=== PATIENT | female | born 1975 | race Caucasian/White ===

== ENCOUNTER → 2020-08-19 | Outpatient (CLI) | payer BC, OTHER ==
[~2020-08-19] MED LIST: ASPIRIN EC81 MG PO; FEOSOL325 MG PO; GLUCOPHAGE 500500 MG PO; LIPITOR TAB 2020 MG PO; LISINOPRIL-HCT1 EAC1 PO; MOBIC7.5 MG PO; PRILOSEC OTC20 MG PO; SYNTHROID150 MCG PO; TENORMIN 25 MG25 MG PO; VITAMIN D250 MCG PO; XYZAL5 MG PO
[2020-08-19 12:51] LABS: HEMOGLOBIN 9.9 gm/dl (12.3-15.3); RED BLOOD COUNT 4.13 M/UL (4.00-5.10); WHITE BLOOD COUNT 5.8 K/UL (4.5-11.0)
[2020-08-19 13:26] LABS: BUN/CREATININE RATIO 17 (0-10)
== END ==
LOC: LAB 11:15
PROVIDERS: Nurse Practitioner Family
DX: I10 Essential (primary) hypertension (principal); E03.9 Hypothyroidism, unspecified; E11.9 Type 2 diabetes mellitus without complications; E53.8 Deficiency of other specified B group vitamins; E55.9 Vitamin D deficiency, unspecified
CPT/HCPCS: 36415; 80053; 80061; 82570; 82607; 84156; 85025

== ENCOUNTER → 2020-09-21 | Outpatient (CLI) | payer BC, OTHER ==
[2020-09-21 19:33] LABS: HEMOGLOBIN 11.5 gm/dl (12.3-15.3); RED BLOOD COUNT 4.54 M/UL (4.00-5.10); WHITE BLOOD COUNT 7.4 K/UL (4.5-11.0)
== END ==
LOC: LAB 18:32
PROVIDERS: Internal Medicine
DX: D64.9 Anemia, unspecified (principal); R53.83 Other fatigue; Z79.1 Long term (current) use of non-steroidal anti-inflammatories (NSAID)
CPT/HCPCS: 80053; 82607; 82728; 82746; 83540; 83550; 84466; 85025; 85045

== ENCOUNTER → 2021-08-01 | Outpatient (CLI) | payer BC, OTHER | LOC: EXRD 10:12 | DX: U07.1 COVID-19 (principal); R06.00 Dyspnea, unspecified | CPT/HCPCS: 71046 ==

== ENCOUNTER → 2021-08-25 | Outpatient (CLI) | payer BC ==
[2021-08-25 11:56] LABS: HEMOGLOBIN 11.2 gm/dl (12.3-15.3); RED BLOOD COUNT 4.21 M/UL (4.00-5.10)
[2021-08-25 12:18] LABS: BUN/CREATININE RATIO 13 (0-10)
== END ==
LOC: LAB 11:24
PROVIDERS: Nurse Practitioner Family
DX: E78.5 Hyperlipidemia, unspecified (principal); E03.9 Hypothyroidism, unspecified; E11.9 Type 2 diabetes mellitus without complications; E53.8 Deficiency of other specified B group vitamins; E55.9 Vitamin D deficiency, unspecified
CPT/HCPCS: 36415; 80053; 80061; 82570; 82607; 84156; 84439; 84443; 85025